=== PATIENT | male | born 1965 | race Caucasian/White ===

== ENCOUNTER 2017-02-14 07:11 | Emergency (ER) | payer OTHER ==
[~2017-02-14] VITALS: Ht 175.3 cm; Wt 82.5 kg
[2017-02-14 07:14] VITALS: Ht 175.3 cm; Wt 82.5 kg
[2017-02-14] MEDS ORDERED: HYDROCODONE/APAP (5/325) TAB PO ONE (07:30)
[2017-02-14] MEDS ORDERED: CLINDAMYCIN 300 MG INJ IM ONE ×2 (07:30→08:00)
[2017-02-14] MEDS ORDERED: CLIN-73 PO (07:46)
--- NOTE | 2017-02-14 07:46 | ERD ---
ER Documentation Chief Complaint Chief Complaint lt side face swelling /dental pain x 3 days HPI This is a 51-year-old male presents to the ER with left-sided canine tooth pain that started on Tuesday. Patient states that through the weekend the area became more painful and now he has noticed some swelling. Denies any headaches , ocular pain or vision changes. He denies any fevers or chills. Patient denies any dysphasia, stiff neck, drooling. Patient does not have insurance, and only goes to the dentist in [facility]. ROS 12 point review of systems was done, all negative except per HPI. Allergies Allergies: Coded Allergies: No Known Allergy (Unverified , 02/14/17) PMhx/Soc Medical and Surgical Hx: pt denies Medical Hx Hx Alcohol Use: No Hx Substance Use: No Hx Tobacco Use: No Physical Exam Vitals Vital Signs Date Time Temp Pulse Resp B/P Pulse Ox O2 Delivery O2 Flow Rate FiO2 02/14/17 07:14 98.6 82 18 155/73 98 Physical Exam GENERAL: The patient is well developed and appropriate for usual state of health , in no apparent distress. HEENT: Atraumatic. Has a visible hole, at the bottom of the left canine tooth and there is swelling to the gum with tenderness to palpation. He did not have any tenderness or fullness to the floor of the mouth. CHEST: Clear to auscultation bilaterally. There are no rales, wheezes or rhonchi. no stridor HEART: Regular rate and rhythm. No murmurs, clicks, rubs or gallops. NEURO: Alert and oriented. Cranial nerves II through XII are intact. SKIN: There is no apparent rash or petechia. The skin is warm and dry. Results 24 hrs Current Medications Medications (Trade) Dose Ordered Sig/Anika Route PRN Reason Start Time Stop Time Status Last Admin Dose Admin Acetaminophen/ Hydrocodone Bitart ([place] (5/325)) 1 tab ONCE ONCE PO 02/14/17 07:30 02/14/17 07:32 DC Clindamycin Phosphate (Cleocin) 600 mg ONCE ONCE IM 02/14/17 07:30 02/14/17 07:31 Cancel Clindamycin Phosphate (Cleocin) 600 mg ONCE ONCE IM 02/14/17 08:00 02/14/17 08:01 Procedures/MDM This is a 51-year-old male presents today with dental pain and gum swelling, patient does have a dental abscess he was given clindamycin in the ER without any complications. Patient will be sent home with clindamycin. He was advised to follow-up with the dentist as soon as possible. Suspicion for deep space infection, Teto's angina, cavernous thrombosis is low. Patient is extremely well-appearing and afebrile. Return to the ER if symptoms worsen. My medical decision making was shared with the patient he understands and agrees with plan. Departure Diagnosis: Primary Impression: Dental abscess Condition: Stable LUPE GONZALEZ Feb 14, 2017 07:46
[2017-02-14] MEDS ORDERED: IBUP-1542 PO (07:47)
[2017-02-14] MEDS ORDERED: HYDR-906 PO (07:47)
[2017-02-14] MEDS ORDERED: CLINDAMYCIN 900 MG INJ IM ONE (08:00)
[2017-02-14] MEDS ORDERED: CLINDAMYCIN 600 MG INJ IM ONE ×2 (08:00)
[2017-02-14 08:18] VITALS: BP 135/71; PULSE 88; RESP 18; TEMP 98.6
== END 2017-02-14 08:23 | disposition home or self-care (01) ==
LOC: FTE 07:11
DX: K04.7 Periapical abscess without sinus (principal)
CPT/HCPCS: 96372; Z7502; Z7610